=== PATIENT | male | born 1935 | race Two or more races ===

== ENCOUNTER 2023-04-06 13:48 | Inpatient (IN) | payer OTHER ==
[~2023-04-06] VITALS: Ht 157.5 cm; Wt 70.3 kg
[2023-04-06 14:34] LABS: BASOPHILS % (AUTO) 0.2 % (0.0-2.0); EOSINOPHILS % (AUTO) 0.3 % (0.0-6.0); HEMATOCRIT 37 % (39-51); HEMOGLOBIN 12.6 g/dL (13.5-17.5); LYMPHOCYTES # (AUTO) 0.7 K/uL (0.8-4.8); LYMPHOCYTES % (AUTO) 13.7 % (20.0-44.0); MEAN CORPUSCULAR HEMOGLOBIN 35 PG (26.0-33.0); MEAN CORPUSCULAR HGB CONC 34 g/dl (31.0-36.0); MEAN CORPUSCULAR VOLUME 101 fL (80-96); MONOCYTES # (AUTO) 0.1 K/uL (0.1-1.30); MONOCYTES % (AUTO) 1.6 % (2.0-12.0); NEUTROPHILS # (AUTO) 4.3 K/uL (1.8-8.9); NEUTROPHILS % (AUTO) 84.2 % (43.0-81.0); PLATELET COUNT (AUTO) 110 K/uL (150-450); RED BLOOD CELL COUNT(AUTO) 3.62 MIL/uL (4.5-6.0); RED CELL DISTRIBUTION WIDTH 13.4 % (11.5-15.0); WHITE BLOOD COUNT (AUTO) 5.2 K/uL (4.3-11.0)
[2023-04-06 14:50] LABS: LACTIC ACID 2.3 mmol/L (0.4-2.0)
[2023-04-06 14:56] LABS: CALCIUM, SERUM 8.9 mg/dL (8.5-10.1); CARBON DIOXIDE 29 mmol/L (21-32); CHLORIDE 96 mmol/L (98-107); CREATININE 1.9 mg/dL (0.6-1.3); GLUCOSE 155 mg/dL (74-106); POTASSIUM 3.2 mmol/L (3.5-5.1); SODIUM SERUM 137 mmol/L (136-145); UREA NITROGEN, BLOOD 22 mg/dL (7-18)
[2023-04-06 15:05] LABS: CREATINE KINASE, TOTAL 58 U/L (39-308)
[2023-04-06 15:07] LABS: C-REACTIVE PROTEIN 4.2 mg/dL (0.0-0.9)
[2023-04-06 15:09] LABS: D-DIMER 1.21 mg/L(FEU (0.17-0.50); INR 1.02 (0.91-1.10); PROTHROMBIN TIME 10.7 SECS (9.2-11.1)
[2023-04-06 15:11] LABS: ALANINE AMINOTRANSFERASE 19 U/L (12-78); ALBUMIN 3.2 g/dL (3.4-5.0); ALKALINE PHOSPHATASE 109 U/L (46-116); ASPARTATE AMINOTRANSFERASE 15 U/L (15-37); BILIRUBIN,TOTAL 0.3 mg/dL (0.2-1.0); NT-PRO BNP 2880 pg/mL (0-125); TOTAL PROTEIN, SERUM 7.9 g/dL (6.4-8.2)
[2023-04-06] MEDS ORDERED: ACETAMINOPHEN 325 MG TABLET PO ONE (15:30)
[2023-04-06] MEDS ORDERED: CEFEPIME 1 GM in IV D5W 50 ML IV ONE (15:30)
[2023-04-06] MEDS ORDERED: VANCOMYCIN 1 GM in IV D5W 250 ML IV ONE (15:30)
[2023-04-06] MEDS ORDERED: IV NS 0.9% 1,000 ML BAG IV ONE (15:30)
[2023-04-06] MEDS ORDERED: ACETAMINOPHEN 325 MG TABLET ONE (15:55)
[2023-04-06 16:00] VITALS: BP 135/75; TEMP 99.8; O2SAT 98
[2023-04-06 17:52] LABS: BILIRUBIN,DIRECT 0.1 mg/dL (0.0-0.2)
[2023-04-06 18:22] LABS: LACTIC ACID REFLEX 0.9 mmol/L (0.4-1.9)
[2023-04-06] MEDS ORDERED: ACETAMINOPHEN 325 MG TABLET PO PRN (19:00)
[2023-04-06] MEDS ORDERED: ONDANSETRON HCL/PF 4 MG/2 ML VIAL IVP PRN (19:00)
[2023-04-06] MEDS ORDERED: Z GUARD REMEDY 4 OZ OINT TP PRN (19:00)
[2023-04-06 20:00] VITALS: BP 125/75; TEMP 98.4; O2SAT 96
[2023-04-06] MEDS ORDERED: POTASSIUM CHLORIDE 10 MEQ TABLET.SA PO ONE (20:00)
[2023-04-06] MEDS: HEPARIN SODIUM, PORCINE 5000 UNITS/1 ML VIAL SQ SCH (21:34)
[2023-04-06] MEDS: TAMSULOSIN 0.4 MG CAP.SR.24H PO SCH (21:35)
[2023-04-06] MEDS: ATORVASTATIN 40 MG TABLET PO SCH (21:35)
[2023-04-06] MEDS: LEVETIRACETAM (250 MG) 250 MG TABLET PO SCH (21:35)
[2023-04-07] VITALS: BP 130/71; TEMP 99; O2SAT 97
[2023-04-07 04:00] VITALS: BP 119/62; TEMP 98.8; O2SAT 95
[2023-04-07 06:08] LABS: BASOPHILS % (AUTO) 0.1 % (0.0-2.0); EOSINOPHILS % (AUTO) 0.4 % (0.0-6.0); HEMATOCRIT 31 % (39-51); HEMOGLOBIN 10.5 g/dL (13.5-17.5); LYMPHOCYTES # (AUTO) 0.3 K/uL (0.8-4.8); LYMPHOCYTES % (AUTO) 10.1 % (20.0-44.0); MEAN CORPUSCULAR HEMOGLOBIN 35 PG (26.0-33.0); MEAN CORPUSCULAR HGB CONC 34 g/dl (31.0-36.0); MEAN CORPUSCULAR VOLUME 101 fL (80-96); MONOCYTES % (AUTO) 1.6 % (2.0-12.0); NEUTROPHILS # (AUTO) 2.6 K/uL (1.8-8.9); NEUTROPHILS % (AUTO) 87.8 % (43.0-81.0); PLATELET COUNT (AUTO) 100 K/uL (150-450); RED BLOOD CELL COUNT(AUTO) 3.03 MIL/uL (4.5-6.0); RED CELL DISTRIBUTION WIDTH 13.6 % (11.5-15.0); WHITE BLOOD COUNT (AUTO) 2.9 K/uL (4.3-11.0)
[2023-04-07 08:00] VITALS: BP 113/67; TEMP 98.5; O2SAT 95
[2023-04-07] MEDS: PANTOPRAZOLE 40 MG TABLET.DR PO SCH (08:15)
[2023-04-07] MEDS: LEVETIRACETAM (250 MG) 250 MG TABLET PO SCH ×2 (08:38→21:33)
[2023-04-07] MEDS: HEPARIN SODIUM, PORCINE 5000 UNITS/1 ML VIAL SQ SCH ×2 (08:38→21:35)
[2023-04-07 08:52] LABS: CALCIUM, SERUM 8.6 mg/dL (8.5-10.1); CARBON DIOXIDE 24 mmol/L (21-32); CHLORIDE 101 mmol/L (98-107); CREATININE 2.6 mg/dL (0.6-1.3); GLUCOSE 87 mg/dL (74-106); MAGNESIUM 2.1 mg/dL (1.8-2.4); PHOSPHORUS 3.1 mg/dL (2.5-4.9); POTASSIUM 3.6 mmol/L (3.5-5.1); SODIUM SERUM 137 mmol/L (136-145); UREA NITROGEN, BLOOD 33 mg/dL (7-18)
[2023-04-07 09:19] LABS: CHOLESTEROL 143 mg/dL (<200); HDL CHOLESTEROL 74 mg/dL (40-60); LDL 57 mg/dL (0-99); TRIGLYCERIDES 31 mg/dL (30-150)
[2023-04-07 09:20] LABS: C-REACTIVE PROTEIN 8.7 mg/dL (0.0-0.9)
[2023-04-07] MEDS ORDERED: RISP0.2515 PO (09:27)
[2023-04-07] MEDS ORDERED: TAMS-12 PO (09:27)
[2023-04-07] MEDS ORDERED: LEVE500T20 PO (09:27)
[2023-04-07] MEDS ORDERED: ATOR40TA PO (09:27)
[2023-04-07 12:00] VITALS: BP 116/67; TEMP 98.3; O2SAT 95
[2023-04-07] MEDS ORDERED: REMDESIVIR (CHARGED) 200 MG, *LOADING DOSE 1 EA in IV NS 0.9% 210 ML IV ONE (12:30)
[2023-04-07 16:00] VITALS: BP 116/67; TEMP 98; O2SAT 95
[2023-04-07 16:50] LABS: APPEARANCE,URINE SLIGHTLY CLOUDY (CLEAR); BILIRUBIN,URINE NEGATIVE (NEGATIVE); BLOOD, URINE TRACE-INTA Ery/uL (NEGATIVE); COLOR,URINE YELLOW (YELLOW); KETONES,URINE NEGATIVE (NEGATIVE); LEUKOCYTE ESTERASE ,URINE 3+ (NEGATIVE); NITRITE, URINE NEGATIVE (NEGATIVE); PH,URINE 8.5 (5.0-8.0); PROTEIN,URINE 2+ mg/dl (NEGATIVE); UGLUCOSE NEGATIVE (NEGATIVE); UROBILINOGEN,URINE 0.2 EU/dL (0.2)
[2023-04-07 17:17] LABS: ADD URINE CULTURE YES; BACTERIA,URINE 3+ /HPF (None Seen); SQUAMOUS EPITHELIAL CELL,UR 0-2 /HPF (None Seen); WBC,URINE 51-80 /HPF (0-3)
[2023-04-07 20:00] VITALS: BP 130/66; TEMP 97.9; O2SAT 95
[2023-04-07] MEDS: TAMSULOSIN 0.4 MG CAP.SR.24H PO SCH (21:33)
[2023-04-07] MEDS: ATORVASTATIN 40 MG TABLET PO SCH (21:33)
[2023-04-07 22:27] LABS: APPEARANCE,URINE SLIGHTLY CLOUDY (CLEAR); BILIRUBIN,URINE NEGATIVE (NEGATIVE); BLOOD, URINE TRACE-INTA Ery/uL (NEGATIVE); COLOR,URINE YELLOW (YELLOW); KETONES,URINE NEGATIVE (NEGATIVE); LEUKOCYTE ESTERASE ,URINE 2+ (NEGATIVE); NITRITE, URINE NEGATIVE (NEGATIVE); PH,URINE 8.5 (5.0-8.0); PROTEIN,URINE 2+ mg/dl (NEGATIVE); UGLUCOSE NEGATIVE (NEGATIVE); UROBILINOGEN,URINE 0.2 EU/dL (0.2)
[2023-04-07 22:48] LABS: RBC,URINE 0-2 /HPF (0-2)
[2023-04-07 22:49] LABS: ADD URINE CULTURE YES; BACTERIA,URINE 1+ /HPF (None Seen); MUCUS,URINE Moderate /LPF (None Seen); SQUAMOUS EPITHELIAL CELL,UR None Seen /HPF (None Seen); WBC,URINE 51-80 /HPF (0-3)
[2023-04-08] VITALS: BP 126/71; TEMP 98.1; O2SAT 95
[2023-04-08 04:00] VITALS: BP 130/80; TEMP 97.5; O2SAT 93
[2023-04-08 05:50] LABS: BASOPHILS % (AUTO) 0.5 % (0.0-2.0); EOSINOPHILS # (AUTO) 0.1 K/uL (0.0-0.7); EOSINOPHILS % (AUTO) 4.8 % (0.0-6.0); HEMATOCRIT 37 % (39-51); HEMOGLOBIN 12.5 g/dL (13.5-17.5); LYMPHOCYTES # (AUTO) 1.1 K/uL (0.8-4.8); LYMPHOCYTES % (AUTO) 37.2 % (20.0-44.0); MEAN CORPUSCULAR HEMOGLOBIN 35 PG (26.0-33.0); MEAN CORPUSCULAR HGB CONC 34 g/dl (31.0-36.0); MEAN CORPUSCULAR VOLUME 102 fL (80-96); MONOCYTES # (AUTO) 0.1 K/uL (0.1-1.30); MONOCYTES % (AUTO) 2.6 % (2.0-12.0); NEUTROPHILS # (AUTO) 1.7 K/uL (1.8-8.9); NEUTROPHILS % (AUTO) 54.9 % (43.0-81.0); PLATELET COUNT (AUTO) 100 K/uL (150-450); RED BLOOD CELL COUNT(AUTO) 3.61 MIL/uL (4.5-6.0); RED CELL DISTRIBUTION WIDTH 13.6 % (11.5-15.0)
[2023-04-08 06:05] LABS: CALCIUM, SERUM 8.8 mg/dL (8.5-10.1); CARBON DIOXIDE 25 mmol/L (21-32); CHLORIDE 102 mmol/L (98-107); CREATININE 3.2 mg/dL (0.6-1.3); GLUCOSE 83 mg/dL (74-106); MAGNESIUM 2.3 mg/dL (1.8-2.4); PHOSPHORUS 4.2 mg/dL (2.5-4.9); POTASSIUM 3.8 mmol/L (3.5-5.1); SODIUM SERUM 137 mmol/L (136-145); UREA NITROGEN, BLOOD 45 mg/dL (7-18)
[2023-04-08 08:00] VITALS: BP 147/83; TEMP 98.3; O2SAT 96
[2023-04-08] MEDS: LEVETIRACETAM (250 MG) 250 MG TABLET PO SCH ×2 (09:08→21:37)
[2023-04-08] MEDS: PANTOPRAZOLE 40 MG TABLET.DR PO SCH (09:11)
[2023-04-08] MEDS: HEPARIN SODIUM, PORCINE 5000 UNITS/1 ML VIAL SQ SCH ×2 (09:11→21:39)
[2023-04-08] MEDS: CEFEPIME 1 GM in IV D5W 50 ML IV SCH (11:35)
[2023-04-08 12:00] VITALS: BP 140/95; TEMP 97.9; O2SAT 94
[2023-04-08] MEDS ORDERED: REMDESIVIR (CHARGED) 100 MG in IV NS 0.9% 230 ML IV SCH (12:00)
[2023-04-08 12:35] LABS: INR 1.04 (0.91-1.10); PROTHROMBIN TIME 10.9 SECS (9.2-11.1)
[2023-04-08 12:37] LABS: PARTIAL THROMBOPLASTIN TIME 87.4 SEC (24.3-34.3)
[2023-04-08 12:39] LABS: ALBUMIN 2.6 g/dL (3.4-5.0); BILIRUBIN,DIRECT 0.1 mg/dL (0.0-0.2); BILIRUBIN,TOTAL 0.2 mg/dL (0.2-1.0); TOTAL PROTEIN, SERUM 7.1 g/dL (6.4-8.2)
[2023-04-08 16:00] VITALS: BP 164/98; TEMP 98.4; O2SAT 94
[2023-04-08 20:00] VITALS: BP 153/79; TEMP 98.6; O2SAT 97
[2023-04-08] MEDS: TAMSULOSIN 0.4 MG CAP.SR.24H PO SCH (21:37)
[2023-04-08] MEDS: ATORVASTATIN 40 MG TABLET PO SCH (21:37)
[2023-04-09] VITALS: BP 170/84; TEMP 98.1; O2SAT 96
[2023-04-09 04:00] VITALS: BP 155/92; TEMP 98.5; O2SAT 98
[2023-04-09 07:50] LABS: BASOPHILS % (AUTO) 0.4 % (0.0-2.0); EOSINOPHILS # (AUTO) 0.1 K/uL (0.0-0.7); EOSINOPHILS % (AUTO) 1.9 % (0.0-6.0); HEMATOCRIT 40 % (39-51); HEMOGLOBIN 13.3 g/dL (13.5-17.5); LYMPHOCYTES # (AUTO) 0.8 K/uL (0.8-4.8); LYMPHOCYTES % (AUTO) 26.1 % (20.0-44.0); MEAN CORPUSCULAR HEMOGLOBIN 34 PG (26.0-33.0); MEAN CORPUSCULAR HGB CONC 33 g/dl (31.0-36.0); MEAN CORPUSCULAR VOLUME 102 fL (80-96); MONOCYTES # (AUTO) 0.1 K/uL (0.1-1.30); MONOCYTES % (AUTO) 2.7 % (2.0-12.0); NEUTROPHILS # (AUTO) 2.1 K/uL (1.8-8.9); NEUTROPHILS % (AUTO) 68.9 % (43.0-81.0); PLATELET COUNT (AUTO) 98 K/uL (150-450); RED BLOOD CELL COUNT(AUTO) 3.91 MIL/uL (4.5-6.0); RED CELL DISTRIBUTION WIDTH 13.6 % (11.5-15.0); WHITE BLOOD COUNT (AUTO) 3.1 K/uL (4.3-11.0)
[2023-04-09 08:00] VITALS: BP 133/79; TEMP 98.1; O2SAT 94
[2023-04-09 08:08] LABS: ALANINE AMINOTRANSFERASE 16 U/L (12-78); ALBUMIN 2.6 g/dL (3.4-5.0); ALKALINE PHOSPHATASE 89 U/L (46-116); ASPARTATE AMINOTRANSFERASE 19 U/L (15-37); BILIRUBIN,DIRECT 0.1 mg/dL (0.0-0.2); BILIRUBIN,TOTAL 0.2 mg/dL (0.2-1.0); CARBON DIOXIDE 23 mmol/L (21-32); CHLORIDE 102 mmol/L (98-107); CREATININE 3.1 mg/dL (0.6-1.3); GLUCOSE 91 mg/dL (74-106); MAGNESIUM 2.3 mg/dL (1.8-2.4); PHOSPHORUS 4.3 mg/dL (2.5-4.9); POTASSIUM 3.8 mmol/L (3.5-5.1); SODIUM SERUM 135 mmol/L (136-145); TOTAL PROTEIN, SERUM 7.1 g/dL (6.4-8.2); UREA NITROGEN, BLOOD 52 mg/dL (7-18)
[2023-04-09 08:22] LABS: INR 1.07 (0.91-1.10); PROTHROMBIN TIME 11.2 SECS (9.2-11.1)
[2023-04-09 08:26] LABS: PARTIAL THROMBOPLASTIN TIME 98.3 SEC (24.3-34.3)
[2023-04-09] MEDS: PANTOPRAZOLE 40 MG TABLET.DR PO SCH (08:40)
[2023-04-09] MEDS: LEVETIRACETAM (250 MG) 250 MG TABLET PO SCH ×2 (08:41→21:22)
[2023-04-09] MEDS: HEPARIN SODIUM, PORCINE 5000 UNITS/1 ML VIAL SQ SCH ×2 (10:14→21:00)
[2023-04-09] MEDS: CEFEPIME 1 GM in IV D5W 50 ML IV SCH (11:19)
[2023-04-09 12:00] VITALS: BP 156/88; TEMP 97.7; O2SAT 94
[2023-04-09] MEDS ORDERED: REMDESIVIR (CHARGED) 100 MG in IV NS 0.9% 100 ML IV SCH (12:00)
[2023-04-09 16:00] VITALS: BP 127/88; TEMP 97.3; O2SAT 94
[2023-04-09 20:00] VITALS: BP 136/93; TEMP 98.7; O2SAT 96
[2023-04-09] MEDS: ATORVASTATIN 40 MG TABLET PO SCH (21:22)
[2023-04-09] MEDS: TAMSULOSIN 0.4 MG CAP.SR.24H PO SCH (21:23)
[2023-04-10] VITALS: BP 105/58; TEMP 99; O2SAT 95
[2023-04-10 04:00] VITALS: BP 148/94; TEMP 97; O2SAT 95
[2023-04-10 05:49] LABS: BASOPHILS % (AUTO) 0.5 % (0.0-2.0); EOSINOPHILS # (AUTO) 0.1 K/uL (0.0-0.7); EOSINOPHILS % (AUTO) 2.6 % (0.0-6.0); HEMATOCRIT 34 % (39-51); HEMOGLOBIN 11.4 g/dL (13.5-17.5); LYMPHOCYTES # (AUTO) 0.7 K/uL (0.8-4.8); LYMPHOCYTES % (AUTO) 30.1 % (20.0-44.0); MEAN CORPUSCULAR HEMOGLOBIN 34 PG (26.0-33.0); MEAN CORPUSCULAR HGB CONC 34 g/dl (31.0-36.0); MEAN CORPUSCULAR VOLUME 101 fL (80-96); MONOCYTES # (AUTO) 0.1 K/uL (0.1-1.30); MONOCYTES % (AUTO) 3.8 % (2.0-12.0); NEUTROPHILS # (AUTO) 1.5 K/uL (1.8-8.9); PLATELET COUNT (AUTO) 95 K/uL (150-450); RED BLOOD CELL COUNT(AUTO) 3.35 MIL/uL (4.5-6.0); RED CELL DISTRIBUTION WIDTH 13.6 % (11.5-15.0); WHITE BLOOD COUNT (AUTO) 2.4 K/uL (4.3-11.0)
[2023-04-10 06:05] LABS: INR 1.21 (0.91-1.10); PARTIAL THROMBOPLASTIN TIME 39.4 SEC (24.3-34.3); PROTHROMBIN TIME 12.6 SECS (9.2-11.1)
[2023-04-10 06:06] LABS: ALANINE AMINOTRANSFERASE 16 U/L (12-78); ALBUMIN 2.3 g/dL (3.4-5.0); ALKALINE PHOSPHATASE 74 U/L (46-116); ASPARTATE AMINOTRANSFERASE 14 U/L (15-37); BILIRUBIN,DIRECT 0.1 mg/dL (0.0-0.2); BILIRUBIN,TOTAL 0.3 mg/dL (0.2-1.0); CALCIUM, SERUM 8.7 mg/dL (8.5-10.1); CARBON DIOXIDE 25 mmol/L (21-32); CHLORIDE 104 mmol/L (98-107); CREATININE 2.7 mg/dL (0.6-1.3); GLUCOSE 94 mg/dL (74-106); MAGNESIUM 2.1 mg/dL (1.8-2.4); PHOSPHORUS 3.6 mg/dL (2.5-4.9); POTASSIUM 3.8 mmol/L (3.5-5.1); SODIUM SERUM 140 mmol/L (136-145); TOTAL PROTEIN, SERUM 6.4 g/dL (6.4-8.2); UREA NITROGEN, BLOOD 34 mg/dL (7-18)
[2023-04-10] MEDS: PANTOPRAZOLE 40 MG TABLET.DR PO SCH (07:26)
[2023-04-10 08:00] VITALS: BP 135/75; TEMP 98.8; O2SAT 95
[2023-04-10] MEDS: LEVETIRACETAM (250 MG) 250 MG TABLET PO SCH ×2 (08:01→21:14)
[2023-04-10] MEDS: HEPARIN SODIUM, PORCINE 5000 UNITS/1 ML VIAL SQ SCH ×2 (08:02→21:15)
[2023-04-10] MEDS: CEFEPIME 1 GM in IV D5W 50 ML IV SCH (09:10)
[2023-04-10 12:00] VITALS: BP 148/91; TEMP 98.2; O2SAT 95
[2023-04-10 16:00] VITALS: BP 137/72; TEMP 98.3; O2SAT 95
[2023-04-10] MEDS: risperiDONE 0.25 MG TABLET PO SCH (16:09)
[2023-04-10 20:00] VITALS: BP 141/71; TEMP 98.8; O2SAT 96
[2023-04-10] MEDS: TAMSULOSIN 0.4 MG CAP.SR.24H PO SCH (21:14)
[2023-04-10] MEDS: ATORVASTATIN 40 MG TABLET PO SCH (21:14)
[2023-04-11] VITALS: BP 146/89; TEMP 98.8; O2SAT 95
[2023-04-11 04:00] VITALS: BP 144/90; TEMP 97.4; O2SAT 95
[2023-04-11] MEDS: PANTOPRAZOLE 40 MG TABLET.DR PO SCH (07:55)
[2023-04-11 08:00] VITALS: BP 138/76; TEMP 98.6; O2SAT 95
[2023-04-11] MEDS: HEPARIN SODIUM, PORCINE 5000 UNITS/1 ML VIAL SQ SCH ×2 (09:00→21:00)
[2023-04-11] MEDS: risperiDONE 0.25 MG TABLET PO SCH ×2 (09:11→17:51)
[2023-04-11] MEDS: CEFEPIME 1 GM in IV D5W 50 ML IV SCH (09:11)
[2023-04-11] MEDS: LEVETIRACETAM (250 MG) 250 MG TABLET PO SCH ×2 (09:11→21:34)
[2023-04-11] MEDS ORDERED: NEPRO VAN 237 ML CAN PO PRN (09:30)
[2023-04-11 12:00] VITALS: BP 143/82; TEMP 97.8; O2SAT 95
[2023-04-11 16:00] VITALS: BP 101/64; TEMP 97.4; O2SAT 98
[2023-04-11] MEDS: PROSOURCE / PROSTAT (PYXIS) 30 ML UDC PO SCH (17:50)
[2023-04-11 20:00] VITALS: BP 115/49; TEMP 98.4; O2SAT 93
[2023-04-11] MEDS: ATORVASTATIN 40 MG TABLET PO SCH (21:34)
[2023-04-11] MEDS: TAMSULOSIN 0.4 MG CAP.SR.24H PO SCH (21:37)
[2023-04-12] VITALS: BP 115/87; TEMP 97.9; O2SAT 92
[2023-04-12 04:00] VITALS: BP 120/69; TEMP 97.9; O2SAT 94
[2023-04-12 06:11] LABS: BASOPHILS % (AUTO) 0.4 % (0.0-2.0); EOSINOPHILS # (AUTO) 0.1 K/uL (0.0-0.7); EOSINOPHILS % (AUTO) 3.5 % (0.0-6.0); HEMATOCRIT 34 % (39-51); HEMOGLOBIN 11.6 g/dL (13.5-17.5); LYMPHOCYTES # (AUTO) 0.7 K/uL (0.8-4.8); LYMPHOCYTES % (AUTO) 29.7 % (20.0-44.0); MEAN CORPUSCULAR HEMOGLOBIN 34 PG (26.0-33.0); MEAN CORPUSCULAR HGB CONC 34 g/dl (31.0-36.0); MEAN CORPUSCULAR VOLUME 100 fL (80-96); MONOCYTES # (AUTO) 0.1 K/uL (0.1-1.30); NEUTROPHILS # (AUTO) 1.6 K/uL (1.8-8.9); NEUTROPHILS % (AUTO) 63.4 % (43.0-81.0); PLATELET COUNT (AUTO) 74 K/uL (150-450); RED BLOOD CELL COUNT(AUTO) 3.39 MIL/uL (4.5-6.0); RED CELL DISTRIBUTION WIDTH 13.5 % (11.5-15.0); WHITE BLOOD COUNT (AUTO) 2.5 K/uL (4.3-11.0)
[2023-04-12 06:30] LABS: CALCIUM, SERUM 8.6 mg/dL (8.5-10.1); CARBON DIOXIDE 31 mmol/L (21-32); CHLORIDE 102 mmol/L (98-107); CREATININE 2.5 mg/dL (0.6-1.3); GLUCOSE 99 mg/dL (74-106); PHOSPHORUS 2.8 mg/dL (2.5-4.9); POTASSIUM 3.8 mmol/L (3.5-5.1); SODIUM SERUM 138 mmol/L (136-145); UREA NITROGEN, BLOOD 30 mg/dL (7-18)
[2023-04-12 07:10] LABS: EOSINOPHILS % (MANUAL) 5 % (0-4); LYMPHOCYTES % (MANUAL) 29 % (16-48); MONOCYTES % (MANUAL) 2 % (0-11.0); NEUTROPHILS % (MANUAL) 64 (42-76); PLATELET ESTIMATE DECREASED
[2023-04-12 08:00] VITALS: BP 114/75; TEMP 98.4; O2SAT 94
[2023-04-12] MEDS: PANTOPRAZOLE 40 MG TABLET.DR PO SCH (08:02)
[2023-04-12] MEDS: PROSOURCE / PROSTAT (PYXIS) 30 ML UDC PO SCH ×2 (08:03→16:15)
[2023-04-12] MEDS: LEVETIRACETAM (250 MG) 250 MG TABLET PO SCH ×2 (08:03→20:56)
[2023-04-12] MEDS: risperiDONE 0.25 MG TABLET PO SCH ×2 (08:03→16:14)
[2023-04-12] MEDS: HEPARIN SODIUM, PORCINE 5000 UNITS/1 ML VIAL SQ SCH ×2 (08:05→20:57)
[2023-04-12 12:00] VITALS: BP 133/69; TEMP 98.3; O2SAT 94
[2023-04-12 16:00] VITALS: BP 129/75; TEMP 98.8; O2SAT 94
[2023-04-12 20:00] VITALS: BP 136/85; TEMP 98.5; O2SAT 96
[2023-04-12] MEDS: ATORVASTATIN 40 MG TABLET PO SCH (21:09)
[2023-04-12] MEDS: TAMSULOSIN 0.4 MG CAP.SR.24H PO SCH (21:09)
[2023-04-13] VITALS: BP 137/86; TEMP 98.3; O2SAT 97
[2023-04-13 04:00] VITALS: BP 137/86; TEMP 98.3; O2SAT 97
[2023-04-13 07:30] VITALS: BP 129/71; TEMP 98.5; O2SAT 97
[2023-04-13 08:00] VITALS: BP 129/71; TEMP 98.5; O2SAT 97
[2023-04-13] MEDS: HEPARIN SODIUM, PORCINE 5000 UNITS/1 ML VIAL SQ SCH (09:00)
[2023-04-13] MEDS: LEVETIRACETAM (250 MG) 250 MG TABLET PO SCH ×2 (09:02→21:12)
[2023-04-13] MEDS: PROSOURCE / PROSTAT (PYXIS) 30 ML UDC PO SCH ×2 (09:02→17:37)
[2023-04-13] MEDS: risperiDONE 0.25 MG TABLET PO SCH ×2 (09:02→17:37)
[2023-04-13] MEDS: PANTOPRAZOLE 40 MG TABLET.DR PO SCH (09:02)
[2023-04-13 16:00] VITALS: BP 117/64; TEMP 98.2; O2SAT 97
[2023-04-13] MEDS: TAMSULOSIN 0.4 MG CAP.SR.24H PO SCH (21:12)
[2023-04-13] MEDS: ATORVASTATIN 40 MG TABLET PO SCH (21:12)
[2023-04-14 07:06] LABS: HEPATITIS B SURFACE AB Reactive (.)
[2023-04-14] MEDS: PANTOPRAZOLE 40 MG TABLET.DR PO SCH (08:33)
[2023-04-14] MEDS: LEVETIRACETAM (250 MG) 250 MG TABLET PO SCH ×2 (08:33→21:20)
[2023-04-14] MEDS: risperiDONE 0.25 MG TABLET PO SCH ×2 (08:33→16:35)
[2023-04-14] MEDS: PROSOURCE / PROSTAT (PYXIS) 30 ML UDC PO SCH ×2 (08:34→16:35)
[2023-04-14] MEDS: TAMSULOSIN 0.4 MG CAP.SR.24H PO SCH (21:21)
[2023-04-14] MEDS: ATORVASTATIN 40 MG TABLET PO SCH (21:21)
[2023-04-15] MEDS: PANTOPRAZOLE 40 MG TABLET.DR PO SCH (07:48)
[2023-04-15 08:00] VITALS: BP 149/96; TEMP 97.8; O2SAT 98
[2023-04-15] MEDS: PROSOURCE / PROSTAT (PYXIS) 30 ML UDC PO SCH ×2 (09:11→16:22)
[2023-04-15] MEDS: risperiDONE 0.25 MG TABLET PO SCH ×2 (09:12→16:22)
[2023-04-15] MEDS: LEVETIRACETAM (250 MG) 250 MG TABLET PO SCH ×2 (09:13→21:38)
[2023-04-15 16:00] VITALS: BP 130/82; TEMP 98.4; O2SAT 95
[2023-04-15 20:00] VITALS: BP 138/72; TEMP 98.6; O2SAT 99
[2023-04-15] MEDS: TAMSULOSIN 0.4 MG CAP.SR.24H PO SCH (21:38)
[2023-04-15] MEDS: ATORVASTATIN 40 MG TABLET PO SCH (21:39)
[2023-04-16 04:00] VITALS: BP 147/66; TEMP 98.4; O2SAT 97
[2023-04-16 07:07] LABS: BASOPHILS % (AUTO) 0.5 % (0.0-2.0); EOSINOPHILS # (AUTO) 0.1 K/uL (0.0-0.7); EOSINOPHILS % (AUTO) 1.5 % (0.0-6.0); HEMATOCRIT 33 % (39-51); HEMOGLOBIN 11.3 g/dL (13.5-17.5); LYMPHOCYTES # (AUTO) 0.8 K/uL (0.8-4.8); LYMPHOCYTES % (AUTO) 24.6 % (20.0-44.0); MEAN CORPUSCULAR HEMOGLOBIN 34 PG (26.0-33.0); MEAN CORPUSCULAR HGB CONC 34 g/dl (31.0-36.0); MEAN CORPUSCULAR VOLUME 100 fL (80-96); MONOCYTES # (AUTO) 0.1 K/uL (0.1-1.30); MONOCYTES % (AUTO) 2.4 % (2.0-12.0); NEUTROPHILS # (AUTO) 2.4 K/uL (1.8-8.9); PLATELET COUNT (AUTO) 89 K/uL (150-450); RED BLOOD CELL COUNT(AUTO) 3.29 MIL/uL (4.5-6.0); RED CELL DISTRIBUTION WIDTH 13.4 % (11.5-15.0); WHITE BLOOD COUNT (AUTO) 3.4 K/uL (4.3-11.0)
[2023-04-16 08:00] VITALS: BP 160/66; TEMP 97.9; O2SAT 97
[2023-04-16] MEDS: PROSOURCE / PROSTAT (PYXIS) 30 ML UDC PO SCH ×2 (08:11→17:18)
[2023-04-16] MEDS: LEVETIRACETAM (250 MG) 250 MG TABLET PO SCH ×2 (08:11→21:58)
[2023-04-16] MEDS: PANTOPRAZOLE 40 MG TABLET.DR PO SCH (08:11)
[2023-04-16] MEDS: risperiDONE 0.25 MG TABLET PO SCH ×2 (08:11→17:18)
[2023-04-16 12:48] LABS: ANISOCYTOSIS 1+; BASOPHILS % (MANUAL) 0 % (0.0-2.0); EOSINOPHILS % (MANUAL) 2 % (0-4); LYMPHOCYTES % (MANUAL) 22 % (16-48); MONOCYTES % (MANUAL) 4 % (0-11.0); NEUTROPHILS % (MANUAL) 72 (42-76); PLATELET ESTIMATE DECREASED
[2023-04-16 16:00] VITALS: BP 165/78; TEMP 98; O2SAT 99
[2023-04-16 20:00] VITALS: BP 130/72; TEMP 98.1; O2SAT 98
[2023-04-16] MEDS: TAMSULOSIN 0.4 MG CAP.SR.24H PO SCH (21:58)
[2023-04-16] MEDS: ATORVASTATIN 40 MG TABLET PO SCH (21:58)
[2023-04-17 04:00] VITALS: BP 143/99; TEMP 97.6; O2SAT 95
[2023-04-17] MEDS: PANTOPRAZOLE 40 MG TABLET.DR PO SCH (07:39)
[2023-04-17 08:00] VITALS: BP 139/85; TEMP 97.6; O2SAT 95
[2023-04-17] MEDS: PROSOURCE / PROSTAT (PYXIS) 30 ML UDC PO SCH ×2 (09:44→18:00)
[2023-04-17] MEDS: risperiDONE 0.25 MG TABLET PO SCH ×2 (09:44→18:00)
[2023-04-17] MEDS: LEVETIRACETAM (250 MG) 250 MG TABLET PO SCH ×2 (09:44→21:57)
[2023-04-17 16:13] VITALS: BP 127/79; TEMP 97.6; O2SAT 95
[2023-04-17 20:00] VITALS: BP 104/66; TEMP 97.9; O2SAT 95
[2023-04-17] MEDS: ATORVASTATIN 40 MG TABLET PO SCH (21:57)
[2023-04-17] MEDS: TAMSULOSIN 0.4 MG CAP.SR.24H PO SCH (21:57)
[2023-04-18 04:00] VITALS: BP 125/86; TEMP 98.8; O2SAT 95
[2023-04-18 05:52] LABS: BASOPHILS % (AUTO) 0.5 % (0.0-2.0); EOSINOPHILS # (AUTO) 0.1 K/uL (0.0-0.7); EOSINOPHILS % (AUTO) 1.7 % (0.0-6.0); HEMATOCRIT 33 % (39-51); HEMOGLOBIN 11.1 g/dL (13.5-17.5); LYMPHOCYTES # (AUTO) 0.8 K/uL (0.8-4.8); LYMPHOCYTES % (AUTO) 26.3 % (20.0-44.0); MEAN CORPUSCULAR HEMOGLOBIN 34 PG (26.0-33.0); MEAN CORPUSCULAR HGB CONC 34 g/dl (31.0-36.0); MEAN CORPUSCULAR VOLUME 100 fL (80-96); MONOCYTES # (AUTO) 0.1 K/uL (0.1-1.30); MONOCYTES % (AUTO) 2.4 % (2.0-12.0); NEUTROPHILS # (AUTO) 2.1 K/uL (1.8-8.9); NEUTROPHILS % (AUTO) 69.1 % (43.0-81.0); PLATELET COUNT (AUTO) 87 K/uL (150-450); RED BLOOD CELL COUNT(AUTO) 3.26 MIL/uL (4.5-6.0); RED CELL DISTRIBUTION WIDTH 13.6 % (11.5-15.0); WHITE BLOOD COUNT (AUTO) 3.1 K/uL (4.3-11.0)
[2023-04-18 08:00] VITALS: BP 112/62; TEMP 97.3; O2SAT 96
[2023-04-18] MEDS: risperiDONE 0.25 MG TABLET PO SCH ×2 (08:46→16:20)
[2023-04-18] MEDS: PANTOPRAZOLE 40 MG TABLET.DR PO SCH (08:46)
[2023-04-18] MEDS: PROSOURCE / PROSTAT (PYXIS) 30 ML UDC PO SCH ×2 (08:46→16:20)
[2023-04-18] MEDS: LEVETIRACETAM (250 MG) 250 MG TABLET PO SCH ×2 (08:46→21:06)
[2023-04-18 09:48] LABS: ANISOCYTOSIS 1+; BASOPHILS % (MANUAL) 0 % (0.0-2.0); EOSINOPHILS % (MANUAL) 0 % (0-4); LYMPHOCYTES % (MANUAL) 25 % (16-48); MONOCYTES % (MANUAL) 3 % (0-11.0); NEUTROPHILS % (MANUAL) 72 (42-76); PLATELET ESTIMATE DECREASED
[2023-04-18 16:00] VITALS: BP 102/72; TEMP 97.5; O2SAT 94
[2023-04-18 20:58] VITALS: BP 111/67; TEMP 97.9; O2SAT 94
[2023-04-18] MEDS: ATORVASTATIN 40 MG TABLET PO SCH (21:05)
[2023-04-18] MEDS: TAMSULOSIN 0.4 MG CAP.SR.24H PO SCH (21:06)
[2023-04-19 04:00] VITALS: BP 118/66; TEMP 97.6; O2SAT 94
[2023-04-19 08:00] VITALS: BP 120/71; TEMP 98.2; O2SAT 97
[2023-04-19] MEDS: PROSOURCE / PROSTAT (PYXIS) 30 ML UDC PO SCH (08:18)
[2023-04-19] MEDS: risperiDONE 0.25 MG TABLET PO SCH (08:18)
[2023-04-19] MEDS: PANTOPRAZOLE 40 MG TABLET.DR PO SCH (08:18)
[2023-04-19] MEDS: LEVETIRACETAM (250 MG) 250 MG TABLET PO SCH (08:18)
== END 2023-04-19 13:52 | disposition home health service (06) | DRG 871 ==
LOC: ER 13:49 → TELE1 16:08 → MEDSG1 04-12 13:31
PROVIDERS: ADMIT Nurse Practitioner Family; ATTEND Nurse Practitioner Acute Care
PROC: XW033E5 Introduction of Remdesivir Anti-infective into Peripheral Vein, Percutaneous Approach, New Technology Group 5 (ICD-10-PCS; principal; 2023-04-07)
PROC: 05HB33Z Insertion of Infusion Device into Right Basilic Vein, Percutaneous Approach (ICD-10-PCS; 2023-04-07)
PROC: 5A1D70Z Performance of Urinary Filtration, Intermittent, Less than 6 Hours Per Day (ICD-10-PCS; 2023-04-08)
PROC: 05H533Z Insertion of Infusion Device into Right Subclavian Vein, Percutaneous Approach (ICD-10-PCS; 2023-04-08)
PROC: B546ZZA Ultrasonography of Right Subclavian Vein, Guidance (ICD-10-PCS; 2023-04-08)
DX: A41.89 Other specified sepsis (principal); G93.41 Metabolic encephalopathy; N18.6 End stage renal disease; U07.1 COVID-19; J12.82 Pneumonia due to coronavirus disease 2019; I12.0 Hypertensive chronic kidney disease with stage 5 chronic kidney disease or end stage renal disease; E44.1 Mild protein-calorie malnutrition; N39.0 Urinary tract infection, site not specified; D61.818 Other pancytopenia; R65.20 Severe sepsis without septic shock; D53.9 Nutritional anemia, unspecified; D63.1 Anemia in chronic kidney disease; D69.6 Thrombocytopenia, unspecified; E87.6 Hypokalemia; E88.09 Other disorders of plasma-protein metabolism, not elsewhere classified; N40.0 Benign prostatic hyperplasia without lower urinary tract symptoms; Z86.73 Personal history of transient ischemic attack (TIA), and cerebral infarction without residual deficits; N40.1 Benign prostatic hyperplasia with lower urinary tract symptoms; Z68.28 Body mass index [BMI] 28.0-28.9, adult; I25.10 Atherosclerotic heart disease of native coronary artery without angina pectoris; Z99.2 Dependence on renal dialysis
CPT/HCPCS: 36410; 36415; 70450-TC; 71045-TC; 80048-TC; 80053-TC; 80061-TC; 80076-TC; 81001; 82248-TC; 82550-TC; 83605-TC; 83615-TC; 83735-TC; 83880; 84100-TC; 84443-TC; 84484-TC; 85025-TC; 85378-TC; 85610-TC; 85730-TC; 86140-TC; 86706; 87040-TC; 87081-TC; 87086-TC; 87340; 90935-TC; 97110-TC; 97112-TC; 97116-TC; 97530-TC; A4216; A4223; C9803; G0378; J0692; J1644; J2048; J3370; J7030; J7050; J7060